=== PATIENT | male | born 1960 | race Caucasian/White ===

== ENCOUNTER 2020-11-23 13:46 | Emergency (ER) | payer OTHER, BC ==
[2020-11-23] MEDS ORDERED: ONDANSETRON 4 MG/2 ML VIAL ONE (14:41)
[2020-11-23] MEDS ORDERED: MORPHINE 4 MG/ML SYR ONE (14:41)
[2020-11-23] MEDS ORDERED: TETANUS & DIPHTHERIA TOX,ADULT 0.5 ML VIAL ONE (14:41)
[2020-11-23] MEDS ORDERED: CEFAZOLIN/SWI 1gm 1 GM/10 ML SYR ONE (14:42)
[2020-11-23 14:43] LABS: Absolute Lymphocytes (CBC) 1.3 K/uL (0.7-4.9); Basophils % 0.5 % (0-1.3); Hematocrit 48.3 % (39.6-49.0); Lymphocytes % 17.6 % (15.3-44.8); MPV 7.6 fL (7.6-11.3); RBC Red Blood Cell Count 5.17 M/uL (4.33-5.43)
[2020-11-23 14:57] LABS: Albumin 4.2 g/dL (3.4-5.0); Bilirubin Direct 0.1 mg/dL (0-0.2); Bilirubin Total 0.6 mg/dL (0.2-1.0); Potassium 4.2 mmol/L (3.5-5.1); Protein, Total 7.8 g/dL (6.4-8.2)
--- NOTE | 2020-11-23 15:00 | RAD REPORT ---
EXAM DESCRIPTION: RAD - Chest Single View - 11/23/2020 2:25 pm CLINICAL HISTORY: Swelling;Trauma, laceration and puncture wound posterior right chest COMPARISON: None TECHNIQUE: AP portable chest image was obtained 11/23/2020 2:25 pm . FINDINGS: Lungs are clear. Heart and vasculature are normal. No measurable pleural effusion and no p neumothorax. No acute bony abnormality seen. No acute aortic findings suspected. IMPRESSION: No acute cardiopulmonary process.
--- NOTE | 2020-11-23 15:07 | RAD REPORT ---
EXAM DESCRIPTION: CT - Chest Abdomen Pelvis W Cont - 11/23/2020 2:42 pm CLINICAL HISTORY: PAIN, laceration and puncture wound posterior lower chest and upper abdomen COMPARISON: OB Complete dated 09/15/2020No comparisons TECHNIQUE: Following dynamic enhancement using 100 milliliters nonionic IV contrast, axial imaging o f the chest, abdomen and pelvis was performed. Biphasic technique was utilized through the abdomen. No oral contrast. All CT scans are performed using dose optimization technique as appropriate and may include automated exposure control or mA/KV adjustment according to patient size. FINDINGS: No pulmonary contusion or acute lung parenchymal process. Patient has scattered calcified granulomas and a right lower lobe 5 mm noncalcified nodule that is probably a granuloma as well. No p neumothorax. No pneumothorax or pleural fluid collection. No significant aortic or pulmonary arterial tree finding. Mediastinal and hilar regions show no mass or abnormal lymphadenopathy. No chest wall mass or axillary lymphadenopathy. No rib fracture is present. There is no evidence for puncture of inter costal musculature. There is a small amount of hemorrhage and air in the subcutaneous fatty tissues with a 6 x 3 cm hematoma superf icial to the right-side erector spinae musculature. No measurable intramuscular hematoma. No abnormal ity within the central canal of the thoracic spinal column. No foreign body identified in the soft ti ssues. The liver, spleen and pancreas show no suspicious findings. Liver shows fatty infiltration. Gallbladd er and biliary tree are unremarkable. Gallstones can be occult on CT imaging. Symmetric renal functi on is seen with no mass or hydronephrosis. No adrenal abnormalities. Renal cysts are present. No dilated bowel loops or focal bowel wall thickening. No acute GI findings seen. Prostate calcificat ions are present. No acute prostate finding suspected. No acute or destructive bony process. No significant vascular findings. IMPRESSION: Air and hemorrhagic changes are present in the posterior lower right thoracic soft tissu es with a 6 x 3 centimeter hematoma superficial to the right erector spinae musculature. No retained foreign body identifiable in the soft tissues. No evidence for disruption of the intercostal musculature. There is no pneumothorax, hemothorax or ot her traumatic injury to the intrathoracic structures.
--- NOTE | 2020-11-23 15:47 | ER ---
Nurse's Notes [facility] Name: Chino Hernandez Age: 60 yrs Sex: Male : 1960 Arrival Date: 11/23/2020 Time: 13:47 Bed 17 Private MD: Diagnosis: Fall due to bumping against object-unspecified open wound of right back wall of thorax, without penetration into thoracic cavity, initial encounter Presentation: 11/23 13:51 Chief complaint: Patient states: was carrying a large picture frame, tripped over some iw wood, frame ended up underneath him, large piece of glass punctured his right mid back, had to pull out glass, bleeding has stopped. 13:51 Method Of Arrival: Ambulatory iw 13:51 Acuity: LOLA 2 iw 14:00 Care prior to arrival: None. Mechanism of Injury: Penetrating trauma inflicted by glass iw that penetrated unknown depth. Object removed prior to arrival. Trauma event details: Injury occurred in the [facility]. 14:04 Coronavirus screen: At this time, the client does not indicate any symptoms associated iw with coronavirus-19. Ebola Screen: Patient negative for fever greater than or equal to 101.5 degrees Fahrenheit, and additional compatible Ebola Virus Disease symptoms Patient denies exposure to infectious person. Patient denies travel to an Ebola-affected area in the 21 days before illness onset. No symptoms or risks identified at this time. Initial Sepsis Screen: Does the patient meet any 2 criteria? No. Patient's initial sepsis screen is negative. Does the patient have a suspected source of infection? No. Patient's initial sepsis screen is negative. Risk Assessment: Do you want to hurt yourself or someone else? Patient reports no desire to harm self or others. Onset of symptoms was November 23, 2020. Trauma Activation: Alert Physician: ED Physician; Name: Dr. Fowler; Notified At: 14:14; Arrived At: 14:14 Physician: General Surgeon; Name: N/A; Notified At: 14:14; Arrived At: N/A Physician: Radiology; Name: Ela; Notified At: 14:14; Arrived At: 14:14 Physician: Respiratory; Name: N/A; Notified At: 14:14; Arrived At: N/A Physician: Lab; Name: N/A; Notified At: 14:14; Arrived At: N/A Historical: - Allergies: 14:02 No Known Allergies; iw - PMHx: 14:15 Asthma; Sleep apnea; iw - Immunization history: Last tetanus immunization: 2016. - Social history:: Smoking status: unknown. - Family history:: not pertinent. Screenin:17 Abuse screen: Denies threats or abuse. Denies injuries from another. Tuberculosis iw screening: No symptoms or risk factors identified. 14:20 Nutritional screening: No deficits noted. Fall Risk IV access (20 points). Total Nelson jl7 Fall Scale indicates No Risk (0-24 pts). Primary Survey: 14:03 NO uncontrolled hemorrhage observed. A: The patient is alert. Airway: patent. iw Breathing/Chest: Respiratory pattern: regular. Circulation: Pulses: palpable right radial artery, left radial artery, left carotid pulse and right carotid pulse. Disability Alert. Exposure/Environment: All clothing and personal items were removed. 14:03 large hematoma noted to right mid back. iw 14:30 Reassessment Breathing/Chest Respiratory pattern Regular Respiratory effort Spontaneous jl7 Unlabored Breath sounds Clear Chest inspection Symmetrical. Assessment: 13:55 General: Appears in no apparent distress. uncomfortable, Behavior is calm, cooperative, jl7 appropriate for age. Pain: Complains of pain in right mid back Pain currently is 1 out of 10 on a pain scale. at worst was 8 out of 10 on a pain scale. Neuro: Level of Consciousness is awake, alert, obeys commands, Oriented to person, place, time, situation. Cardiovascular: Denies chest pain, Patient's skin is warm and dry. Respiratory: Airway is patent Respiratory effort is even, unlabored, Respiratory pattern is regular, symmetrical, Denies shortness of breath. Derm: Skin is pink, warm \T\ dry. 14:13 Reassessment: Dr. Fowler at bedside, cleaning puncture wound site, site began jl7 hemorrhaging, pressure dressing applied and trauma alert called. 14:33 Reassessment: To CT via wheelchair with DEVIKA Mahmood. 7 15:00 Reassessment: Dr. Hollins at bedside, removed dressing and replaced with another jl7 pressure dressing. Instructed pt to follow up with him at his office, no surgical intervention is need at this time. Vital Signs: 14:05 Pulse 100; Resp 18 S; Temp 98.4(TE); Pulse Ox 100% on R/A; iw 14:07 BP 141 / 73; Pulse 75; Resp 18; Pulse Ox 100% on R/A; ph 14:45 BP 148 / 92; Pulse 85; Resp 15; Pulse Ox 100% ; jl7 15:40 BP 145 / 75; Pulse 84; Resp 15; Pulse Ox 100% ; jl7 [place] Coma Score: 14:05 Eye Response: spontaneous(4). Verbal Response: oriented(5). Motor Response: obeys iw commands(6). Total: 15. 14:45 Eye Response: spontaneous(4). Verbal Response: oriented(5). Motor Response: obeys jl7 commands(6). Total: 15. 15:40 Eye Response: spontaneous(4). Verbal Response: oriented(5). Motor Response: obeys jl7 commands(6). Total: 15. Trauma Score (Adult): 14:05 Eye Response: spontaneous(1); Verbal Response: oriented(1); Motor Response: obeys iw commands(2); Systolic BP: > 89 mm Hg(4); Respiratory Rate: 10 to 29 per min(4); Sesar Score: 15; Trauma Score: 12 ED Course: 13:47 Patient arrived in ED. rg4 13:52 Triage completed. iw 13:59 Darrick Billingsley RN is Primary Nurse. jl7 14:00 Pulse ox on. NIBP on. jl7 14:05 Lc Fowler MD is Attending Physician. [facility] 14:06 Arm band placed on. iw 14:10 Patient has correct armband on for positive identification. Placed in gown. Bed in low jl7 position. Call light in reach. Side rails up X 1. 14:10 Patient maintains SpO2 saturation greater than 95% on room air. Thermoregulation: Pt jl7 refuses warm blanket at this time. 14:20 Initial lab(s) drawn, by me, sent to lab. T\T\S collected, blood band applied to patient. jl7 Inserted saline lock: 18 gauge in left antecubital area, using aseptic technique. Blood collected. 14:25 Chest Single View XRAY In Process Unspecified. EDMS 14:41 CT Chest, Abdomen, Pelvis - W/Contrast In Process Unspecified. EDMS 15:19 No provider procedures requiring assistance completed. jl7 15:33 Rhett Hollins MD is Referral Physician. [facility] 15:58 IV discontinued, intact, bleeding controlled, No redness/swelling at site. Pressure jl7 dressing applied. Administered Medications: 14:25 Drug: morphine 4 mg Route: IVP; Site: left antecubital; jl7 14:45 Follow up: Response: No adverse reaction; Pain is decreased jl7 14:25 Drug: Zofran (Ondansetron) 4 mg Route: IVP; Site: left antecubital; jl7 15:03 Follow up: Response: No adverse reaction jl7 14:28 Drug: Tetanus-Diphtheria Toxoid Adult 0.5 ml {Clinical Nursing Intern: [employer]. Exp: jl7 08/05/2022. Lot #: [id number]. } Route: IM; Site: left deltoid; 15:02 Follow up: Response: No adverse reaction jl7 14:30 Drug: Ancef (cefazolin) 1 grams Route: IVPB; Site: left antecubital; jl7 14:35 Follow up: Response: No adverse reaction; IV Status: Completed infusion jl7 15:42 Drug: KeFLEX (cephalexin) 500 mg Route: PO; jl7 15:42 Follow up: Response: No adverse reaction jl7 Intake: 15:05 PO: 0ml; IV: 0ml; Tubes: 0ml (); Total: 0ml. jl7 Output: 15:05 Urine: 0ml; Gastric: 0ml; Stool: 0; EBL: 0ml; Drainage: 0ml; Other: 0; Total: 0ml. jl7 Outcome: 15:47 Discharge ordered by . [facility] 15:58 Discharged to home ambulatory. jl7 15:58 Condition: stable 15:58 Discharge instructions given to patient, Instructed on discharge instructions, follow up and referral plans. medication usage, Demonstrated understanding of instructions, follow-up care, medications, Prescriptions given X 2. 15:59 Patient's length of stay was not longer than 2 hours. jl7 15:59 Patient left the ED. jl7 Signatures: Dispatcher [employer] EDCO Lc Fowler MD MD cha Williams, Irene, RN TOMÁS Phillip Howellia, RN RN Anila Abreu rg4 Darrick Billingsley RN RN jl7 Corrections: (The following items were deleted from the chart) 14:00 13:51 Acuity: LOLA 3 iw iw 14: 14:05 Pulse 100bpm; Resp 18bpm; Spontaneous; Pulse Ox 100% RA; iw iw 14:17 14:03 NO uncontrolled hemorrhage observed iw iw
--- NOTE | 2020-11-23 15:48 | EDPHYS ---
Physician Documentation [facility] Name: Chino Hernandez Age: 60 yrs Sex: Male : 1960 Arrival Date: 11/23/2020 Time: 13:47 Bed 17 Private MD: ED Physician Lc Fowler HPI: 11/23 14:18 This 60 yrs old Male presents to ER via Ambulatory with complaints of Back rashad Injury, Puncture Wound To Back. 14:18 The patient presents with pain and decreased range of motion, and penetrating injury, rashad glass. The symptoms are located in the right mid back. Onset: The symptoms/episode began/occurred just prior to arrival. The pain does not radiate. Associated signs and symptoms: The patient has no apparent associated signs or symptoms. The problem was sustained during a fall, onto glass. Modifying factors: The patient symptoms are alleviated by nothing, the patient symptoms are aggravated by any movement. Severity of symptoms: At their worst the symptoms were mild, moderate, in the emergency department the symptoms are unchanged. The patient has not experienced similar symptoms in the past. Historical: - Allergies: 14:02 No Known Allergies; iw - PMHx: 14:15 Asthma; Sleep apnea; iw - Immunization history: Last tetanus immunization: 2015. - Social history:: Smoking status: unknown. - Family history:: not pertinent. ROS: 14:18 Constitutional: Negative for fever, chills, and weight loss, Eyes: Negative for injury, rashad pain, redness, and discharge, ENT: Negative for injury, pain, and discharge, Neck: Negative for injury, pain, and swelling, Cardiovascular: Negative for chest pain, palpitations, and edema, Respiratory: Negative for shortness of breath, cough, wheezing, and pleuritic chest pain, Abdomen/GI: Negative for abdominal pain, nausea, vomiting, diarrhea, and constipation, : Negative for injury, bleeding, discharge, and swelling, MS/Extremity: Negative for injury and deformity, Skin: Negative for injury, rash, and discoloration, Neuro: Negative for headache, weakness, numbness, tingling, and seizure, Psych: Negative for depression, anxiety, suicide ideation, homicidal ideation, and hallucinations, Allergy/Immunology: Negative for hives, rash, and allergies, Endocrine: Negative for neck swelling, polydipsia, polyuria, polyphagia, and marked weight changes, Hematologic/Lymphatic: Negative for swollen nodes, abnormal bleeding, and unusual bruising. 14:18 Back: Positive for pain at rest, flank pain, of the right mid back. Exam: 14:18 Constitutional: This is a well developed, well nourished patient who is awake, alert, rashad and in no acute distress. Head/Face: Normocephalic, atraumatic. Eyes: Pupils equal round and reactive to light, extra-ocular motions intact. Lids and lashes normal. Conjunctiva and sclera are non-icteric and not injected. Cornea within normal limits. Periorbital areas with no swelling, redness, or edema. ENT: Nares patent. No nasal discharge, no septal abnormalities noted. Tympanic membranes are normal and external auditory canals are clear. Oropharynx with no redness, swelling, or masses, exudates, or evidence of obstruction, uvula midline. Mucous membranes moist. Neck: Trachea midline, no thyromegaly or masses palpated, and no cervical lymphadenopathy. Supple, full range of motion without nuchal rigidity, or vertebral point tenderness. No Meningismus. Chest/axilla: Normal chest wall appearance and motion. Nontender with no deformity. No lesions are appreciated. Cardiovascular: Regular rate and rhythm with a normal S1 and S2. No gallops, murmurs, or rubs. Normal PMI, no JVD. No pulse deficits. Respiratory: Lungs have equal breath sounds bilaterally, clear to auscultation and percussion. No rales, rhonchi or wheezes noted. No increased work of breathing, no retractions or nasal flaring. Abdomen/GI: Soft, non-tender, with normal bowel sounds. No distension or tympany. No guarding or rebound. No evidence of tenderness throughout. Male : Normal genitalia with no discharge or lesions. MS/ Extremity: Pulses equal, no cyanosis. Neurovascular intact. Full, normal range of motion. Neuro: Awake and alert, GCS 15, oriented to person, place, time, and situation. Cranial nerves II-XII grossly intact. Motor strength 5/5 in all extremities. Sensory grossly intact. Cerebellar exam normal. Normal gait. Psych: Awake, alert, with orientation to person, place and time. Behavior, mood, and affect are within normal limits. 14:18 Back: pain, that is moderate, ROM is painful, normal spinal alignment noted, CVA tenderness, is absent, vertebral tenderness, is not appreciated, muscle spasm, is not present. Vital Signs: 14:05 Pulse 100; Resp 18 S; Temp 98.4(TE); Pulse Ox 100% on R/A; iw 14:07 BP 141 / 73; Pulse 75; Resp 18; Pulse Ox 100% on R/A; ph 14:45 BP 148 / 92; Pulse 85; Resp 15; Pulse Ox 100% ; jl7 15:40 BP 145 / 75; Pulse 84; Resp 15; Pulse Ox 100% ; jl7 [place] Coma Score: 14:05 Eye Response: spontaneous(4). Verbal Response: oriented(5). Motor Response: obeys iw commands(6). Total: 15. 14:45 Eye Response: spontaneous(4). Verbal Response: oriented(5). Motor Response: obeys jl7 commands(6). Total: 15. 15:40 Eye Response: spontaneous(4). Verbal Response: oriented(5). Motor Response: obeys jl7 commands(6). Total: 15. Trauma Score (Adult): 14:05 Eye Response: spontaneous(1); Verbal Response: oriented(1); Motor Response: obeys iw commands(2); Systolic BP: > 89 mm Hg(4); Respiratory Rate: 10 to 29 per min(4); Sesar Score: 15; Trauma Score: 12 MDM: 14:05 Patient medically screened. [facility] 14:20 Differential diagnosis: stab wound, fall on glass, glass into back. Data reviewed: [facility] vital signs, nurses notes, lab test result(s), radiologic studies, CT scan, plain films. Data interpreted: vehicle monitor technician: rate is 75 beats/min, rhythm is regular, Pulse oximetry: on. Test interpretation: by ED physician or midlevel provider: plain radiologic studies. Counseling: I had a detailed discussion with the patient and/or guardian regarding: the historical points, exam findings, and any diagnostic results supporting the discharge/admit diagnosis, lab results, radiology results. 14:22 Physician consultation: Rhett Hollins MD and will see patient in ED. [facility] 15:32 Physician consultation: Rhett Hollins MD saw patient, will dc home with dressing, close rashad follow up. 11/23 14:17 Order name: Basic Metabolic Panel; Complete Time: 15:31 rashad 07/06 14:17 Order name: CBC with Diff; Complete Time: 15:31 [facility] 11/23 14:17 Order name: Chest Single View XRAY; Complete Time: 15:31 [facility] 11/23 14:17 Order name: CT Chest, Abdomen, Pelvis - W/Contrast; Complete Time: 15:31 [facility] 11/23 14:17 Order name: LFT's; Complete Time: 15:31 [facility] 11/23 14:17 Order name: Labs collected and sent; Complete Time: 14:32 [facility] 11/23 14:18 Order name: Wound dressing; Complete Time: 15:02 [facility] Administered Medications: 14:25 Drug: morphine 4 mg Route: IVP; Site: left antecubital; jl7 14:45 Follow up: Response: No adverse reaction; Pain is decreased jl7 14:25 Drug: Zofran (Ondansetron) 4 mg Route: IVP; Site: left antecubital; jl7 15:03 Follow up: Response: No adverse reaction jl7 14:28 Drug: Tetanus-Diphtheria Toxoid Adult 0.5 ml {Operations Systems Specialist: [employer]. Exp: jl7 08/05/2022. Lot #: [id number]. } Route: IM; Site: left deltoid; 15:02 Follow up: Response: No adverse reaction jl7 14:30 Drug: Ancef (cefazolin) 1 grams Route: IVPB; Site: left antecubital; jl7 14:35 Follow up: Response: No adverse reaction; IV Status: Completed infusion jl7 15:42 Drug: KeFLEX (cephalexin) 500 mg Route: PO; jl7 15:42 Follow up: Response: No adverse reaction jl7 Disposition Summary: 11/23/20 15:47 Discharge Ordered Location: Home rashad Problem: new rashad Symptoms: have improved rashad Condition: Stable rashad Diagnosis - Fall due to bumping against object - unspecified open wound of right back wall of rashad thorax, without penetration into thoracic cavity, initial encounter Followup: rashad - With: Rhett Hollins MD - When: 2 - 3 days - Reason: Recheck today's complaints, Re-evaluation by your physician Discharge Instructions: - Discharge Summary Sheet rashad - Hematoma rashad - Hematoma, [id number] rashad - Stab Wound rashad Forms: - Medication Reconciliation Form rashad - Thank You Letter rashad - Antibiotic Education rashad - Prescription Opioid Use [facility] Prescriptions: - acetaminophen-codeine 300 mg-30 mg /12.5 mL Oral solution - take 25 milliliter by ORAL route every 6 hours; 180 milliliter; Refills: 0, [facility] Product Selection Permitted - Cephalexin 500 mg Oral Capsule - take 1 capsule by ORAL route every 6 hours for 7 days; 28 capsule; Refills: 0, [facility] Product Selection Permitted Signatures: Dispatcher [employer] Candace Chambers RN RN sv Anderson, Corey, MD MD cha Williams, Irene RN Darrick Guerrero RN RN jl7 Corrections: (The following items were deleted from the chart) 15:02 14:46 Labs - recollect needed ordered. emre [email or web address] 15:06 14:18 TYPE AND SCREEN+[id number] ordered. BRY HERNANDEZMS
[2020-11-23] MEDS ORDERED: CEPHALEXIN 250 MG CAP ONE (15:55)
[2020-11-23 16:06] VITALS: TEMP 98.4; O2SAT 100
[2020-11-23 16:12] VITALS: BP 145/75
--- NOTE | 2020-11-24 09:40 | CON ---
Date of Consultation: 11/23/2020 Brief Hpi: The patient is a 60-year-old male who was walking earlier today carrying a fram ed photo and lost his balance and ultimately had a shattering of glass and he fell upon the shattered glass ultimately, puncturing his back on the right posterior flank area. He had significant bleedin g from this area and as such came to the emergency room with the above-stated complaints. Past Medical History: Significant for asthma, sleep apnea, Allergies: NO KNOWN DRUG ALLERGIES. Surgical History: He has had multiple joint surgeries, but cannot recall any other surgeries at this point. Immunizations: Last tetanus was in 2016. Medications: He cannot recall at this point as the patient is seen in the ER. Review of Systems: A 10-point review of systems other than HPI denies other than pain at his right flank area. Physical Examination: General: He is awake, alert, oriented. Psychiatric: He is appropriate, conversive. HEENT: Normocephalic. His sclerae are anicteric. His mucous membranes are moist. His oropharynx i s clear. Neck: Supple without JVD. Chest: Normal expansion and excursion. Cardiovascular: Regular rate and rhythm. Pulmonary: Clear to auscultation bilaterally. Abdomen: Soft, nontender, nondistended. Extremities: No clubbing, cyanosis, edema. 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 Back: He has an approximately 1 cm puncture wound to the right posterior flank lower thoracic area w ith a hematoma evident there. There is no active bleeding. I removed the pressure dressings and exa mined the area. It is mildly tender to palpation. Laboratory Data: The patient had a laboratory exam which revealed a white blood cell count of 7.6, h emoglobin 16.9, hematocrit of 48.3, platelet count is 260. His sodium 140, potassium 4.2, chloride 1 05, carbon dioxide 30, BUN 19, creatinine 0.94. His glucose is 92, total bilirubin 0.6, direct compo nent 0.1, AST 23, ALT 47, alk phos 65. He had imaging performed, which included a CT of the abdomen and pelvis officially read as air and hemorrhagic changes are present in the posterior lower right th oracic soft tissues with a 6 x 3 cm hematoma superficial to the right erector spinae musculature. No retained foreign body identified in the soft tissues. No evidence for destruction of intercostal mu sculature. There is no pneumothorax, hemothorax, or other traumatic injury to the intrathoracic stru ctures. He had a chest x-ray performed as well, which is officially read as no acute cardiopulmonary process. Assessment And Plan: This is a 60-year-old male who comes in with a stable hematoma of the right pos terior flank area after a fall with a puncture injury to this area. 1.Cleansing of the area. 2.Continue pressure dressing with Lito wrap and bulky dressings to be changed every day. 3.His hemoglobin is stable. His vital signs have been stable throughout his time in the ER. The pa in is well controlled. As such, I believe it is safe for the patient to go home on Keflex and Tyleno l with Codeine, to follow up with me in my clinic within 1 week to ensure that there are no continued issues. The patient is instructed to return to the ER with any evidence of expansion of the hematom a or any other complaints related to his back or the flank area. I explained the risks, benefits, an d alternatives of the above stated plan. The patient agrees to proceed as indicated. VADIM/KONSTANTIN Voice ID: [id number] Report ID: [id number]
== END 2020-11-23 15:59 | disposition home or self-care (01) ==
LOC: ER 13:46
DX: S21.201A Unspecified open wound of right back wall of thorax without penetration into thoracic cavity, initial encounter (principal); W01.198A Fall on same level from slipping, tripping and stumbling with subsequent striking against other object, initial encounter; Y93.01 Activity, walking, marching and hiking; Z23 Encounter for immunization
CPT/HCPCS: 85025; 80048; 36415; 82565; 80076; 71260; 74177; 71045; 90471; 90714; 96375; 96374; 99284; Q9967; J0690; J2405; G0390